=== PATIENT | female | born 1950 | race Caucasian/White ===

== ENCOUNTER 2020-11-16 13:20 | Emergency (ER) | payer MEDICARE ==
[~2020-11-16] VITALS: Ht 162.6 cm; Wt 77.1 kg
--- NOTE | 2020-11-16 14:10 | NUR ---
PT IS AOX4.RESTING COMFORTABLY IN BED AT THIS TIME WITH FAMILY MEMBER AT BED SIDE. NO SOB NOTED, NO S/O ANY ACUTE DISTRESS. WILL MONITOR
[2020-11-16] MEDS ORDERED: ACETAMINOPHEN ES 500 MG TABLET ONE (14:29)
[2020-11-16] MEDS ORDERED: DEXAMETHASONE SOD PHOSPHATE 10 MG/ML VIAL ONE (14:29)
[2020-11-16] MEDS ORDERED: IBUPROFEN 600 MG TABLET ONE (14:29)
[2020-11-16] MEDS ORDERED: DEXAMETHASONE SOD PHOSPHATE 10 MG/ML VIAL IM ONE (14:30)
[2020-11-16] MEDS ORDERED: ACETAMINOPHEN ES 500 MG TABLET PO ONE (14:30)
[2020-11-16] MEDS ORDERED: IBUPROFEN 600 MG TABLET PO ONE (14:30)
--- NOTE | 2020-11-16 14:49 | NUR ---
ADMINISTERED ACETAMINOPHEN, MOTRIN AND DECADRON PER ORDER AT THIS TIME. WILL CONTINUE TO MONITOR
[2020-11-16] MEDS ORDERED: HYDR12.55 PO (15:21)
[2020-11-16] MEDS ORDERED: METO25TA4 PO (15:21)
[2020-11-16] MEDS ORDERED: ATOR10TA PO (15:21)
--- NOTE | 2020-11-16 15:43 | NUR ---
Patient discharged to home in stable condition. Written and verbal after care instructions given. Patient verbalizes understanding of instruction.
[2020-11-16 15:44] VITALS: BP 126/82
== END 2020-11-16 15:44 | disposition home or self-care (01) ==
LOC: ER 13:24
DX: M54.2 Cervicalgia (principal); I10 Essential (primary) hypertension; E78.00 Pure hypercholesterolemia, unspecified; Z79.899 Other long term (current) drug therapy
CPT/HCPCS: 71045; 93005; 96372; 99283; J1100